=== PATIENT | female | born 2000 | race Caucasian/White ===

== ENCOUNTER → 2021-01-04 08:55 | Outpatient (CLI) | payer OTHER, SELFPAY ==
[2021-01-04 10:03] LABS: HCG Quantitative /Beta subunit 387.7 mIU/mL
== END ==
PROVIDERS: PCP Family Medicine; Referring Provider Family Medicine; Visit Provider Family Medicine
DX: Z32.00 Encounter for pregnancy test, result unknown (principal)
CPT/HCPCS: 36415; 84702

== ENCOUNTER → 2021-01-07 11:33 | Outpatient (CLI) | payer OTHER, SELFPAY ==
[2021-01-07 12:14] LABS: HCG Quantitative /Beta subunit 1449.8 mIU/mL
== END ==
PROVIDERS: PCP Family Medicine; Referring Provider Family Medicine; Visit Provider Family Medicine
DX: Z32.00 Encounter for pregnancy test, result unknown (principal)
CPT/HCPCS: 36415; 84702

== ENCOUNTER → 2021-01-09 10:48 | Outpatient (CLI) | payer OTHER, SELFPAY ==
--- NOTE | 2021-01-09 10:49 | DI.US.S_ITS ---
PROCEDURE: US OB <= 14 WEEKS FETUS INDICATIONS: dating/viability (LMP very unsure) OUTSIDE/PRIOR DATING DATA: Last menstrual period (LMP): Not available LMP-based estimated date of delivery (MICAH): Not available. First dating scan (date and location): 01/09/21. Estimated date of delivery (MICAH) from first dating scan: 09/08/21. TECHNIQUE: Real-time scanning was performed of the fetus and maternal pelvic organs, with image documentation. Endovaginal scanning was also performed to better visualize the fetus and maternal ovaries. COMPARISON: None. FINDINGS: Embryo : Not seen but there is a mean sac diameter of 7 mm which correlates with a gestational age of 5 weeks 3 days. Measurement variability in dating: +/- 4 we. -rump length not able to be measured), +/- 5 days by crown-rump length (up to 8 weeks 6 days gestation), +/- 7 days by crown-rump length (up to 13 weeks 6 days gestation). Yolk sac seen. Maternal organs: Ovaries normal considering gestational status.. IMPRESSION: Early 1st trimester gestation with yolk sac seen within a gestational sac within the endometrial space. A pole is not yet seen, likely due to early gestational age. Follow up in 7-10 days and also correlation with quantitative beta HCG may be warranted Dictated by: David Wallace M.D. on 01/09/2021 at 14:18 Approved by: David Wallace M.D. on 01/09/2021 at 14:22
== END ==
PROVIDERS: PCP Family Medicine; Referring Provider Family Medicine; Visit Provider Family Medicine
DX: Z34.81 Encounter for supervision of other normal pregnancy, first trimester (principal); Z3A.01 Less than 8 weeks gestation of pregnancy
CPT/HCPCS: 76801; 76817

== ENCOUNTER → 2021-01-17 16:37 | Outpatient (CLI) | payer OTHER, SELFPAY ==
[2021-01-17 18:24] LABS: HCG Quantitative /Beta subunit 29936 mIU/mL
== END ==
PROVIDERS: PCP Family Medicine; Referring Provider Family Medicine; Visit Provider Family Medicine
DX: Z34.90 Encounter for supervision of normal pregnancy, unspecified, unspecified trimester (principal)
CPT/HCPCS: 36415; 84702

== ENCOUNTER → 2021-02-13 11:11 | Outpatient (CLI) | payer OTHER, SELFPAY ==
[2021-02-13 11:51] LABS: Appearance Urine UA SL CLOUDY; Bilirubin Urine UA NEGATIVE (NEGATIVE); Color Urine UA YELLOW; Glucose Urine UA NEGATIVE (Negative); Ketones Urine UA NEGATIVE (NEGATIVE); Leukocyte Esterase Urine UA 2+ (NEGATIVE); Nitrite Urine UA NEGATIVE (Negative); Occult Blood Urine UA NEGATIVE (Negative); Protein Urine UA NEGATIVE (Negative); Urobilinogen Urine UA 0.2 E.U./dL (0.2)
[2021-02-13 11:54] LABS: Add Manual Diff / Slide Review NO; Basophils Absolute Auto 0 /uL (0-100); Basophils Percent Auto 0.5 % (0-2); Eosinophils Absolute Auto 0 /uL (0-450); Eosinophils Percent Auto 0.5 % (2-4); Hematocrit 32.4 % (36-46); Hemoglobin 11.4 g/dL (12.0-16.0); Lymphocytes Absolute Auto 1200 /uL (1100-4500); Lymphocytes Percent Auto 16.7 % (25-40); Mean Corpuscular HGB Conc 35.2 % (30-36); Mean Corpuscular Hemoglobin 31.2 PG (26-34); Mean Corpuscular Volume 88.6 fL (80-100); Monocytes Absolute Auto 500 /uL (0-900); Monocytes Percent Auto 7.4 % (3-14); Neutrophils Absolute Auto 5500 /uL (1500-7000); Neutrophils Percent Auto 74.9 % (50-75); Platelet Count 261 X10^3/uL (150-400); Red Blood Cell Count 3.65 X10^6/uL (4.0-5.2); Red Cell Distribution Width 12.8 % (11.6-14.8); White Blood Cell Count 7.4 X10^3/uL (4.5-11.0)
[2021-02-13 11:58] LABS: pH Urine UA 7.5 (4.5-8.0)
[2021-02-13 11:59] LABS: RBC Urine None Seen (0-5/HPF)
[2021-02-13 12:18] LABS: Amorphous Sediment Urine 4+; Bacteria Urine Few (2-10); Squamous Epithelial Cell Urine 10-30 /HPF (0-5/HPF); WBC Urine 1-5/HPF (0-5/HPF)
[2021-02-14 06:39] LABS: RPR Screen Non Reactive (Non Reactive)
[2021-02-14 12:36] LABS: Varicella IgG Antibody 2047 index (Immune >165)
[2021-02-14 15:50] LABS: Hepatitis B Surface Antigen NEGATIVE s/c (NEGATIVE); Rubella Antibody IgG 40.1 IU/mL (>15)
[2021-02-14 16:04] LABS: HIV 1 & 2 Ab/Ag 4th Gen Combo NEGATIVE (NEGATIVE); Hep C Virus Ab w/Reflex Quant NEGATIVE s/c (NEGATIVE)
== END ==
PROVIDERS: PCP Family Medicine; Referring Provider Family Medicine; Visit Provider Family Medicine
DX: Z34.81 Encounter for supervision of other normal pregnancy, first trimester (principal)
CPT/HCPCS: 36415; 80055; 81003; 81015; 86787; 86803; 86850; 86900; 86901; 87086; 87389

== ENCOUNTER → 2021-03-13 11:45 | Outpatient (CLI) | payer OTHER, SELFPAY ==
[2021-03-16 10:19] LABS: AFP, Serum 35.8 ng/mL (.); Estriol, Free 0.61 ng/mL (.); Inhibin A, Dimeric 358.85 pg/mL (.); Inhibin A, MoM 1.99 (.); Maternal Ethnicity Caucasian (.); Maternal Weight 144 lbs (.); Number of Fetuses No (.); OSBR Risk 1 IN 10000 (.); Results Report (.); Test Results *Screen Positive* (.); hCG, MoM 5.05 (.); hCG, Serum 127149 mIU/mL (.)
== END ==
PROVIDERS: PCP Family Medicine; Referring Provider Family Medicine; Visit Provider Family Medicine
DX: Z34.82 Encounter for supervision of other normal pregnancy, second trimester (principal); Z3A.14 14 weeks gestation of pregnancy
CPT/HCPCS: 36415; 82105; 82677; 84702; 86336

== ENCOUNTER → 2021-04-01 10:14 | Outpatient (CLI) | payer OTHER, SELFPAY ==
[2021-04-03 19:10] LABS: AFP, Serum 52.6 ng/mL (.); Calc Gestational Age Ultrasound (.); Estriol, Free 1.36 ng/mL (.); Inhibin A, Dimeric 352.75 pg/mL (.); Inhibin A, MoM 2.23 (.); Maternal Ethnicity Caucasian (.); Maternal Weight 145 lbs (.); Number of Fetuses No (.); OSBR Risk 1 IN 4664 (.); Results Report (.); Test Results *Screen Negative* (.); hCG, MoM 1.89 (.); hCG, Serum 63709 mIU/mL (.)
== END ==
PROVIDERS: PCP Family Medicine; Referring Provider Family Medicine; Visit Provider Family Medicine
DX: Z34.90 Encounter for supervision of normal pregnancy, unspecified, unspecified trimester (principal)
CPT/HCPCS: 36415; 82105; 82677; 84702; 86336

== ENCOUNTER → 2021-04-12 15:39 | Outpatient (CLI) | payer OTHER, SELFPAY ==
--- NOTE | 2021-04-12 15:40 | DI.US.S_ITS ---
PROCEDURE: US OB >= 14 WEEKS FETUS INDICATIONS: ANATOMY SCAN OUTSIDE/PRIOR DATING DATA: Last menstrual period (LMP): Unknown. First dating scan (date and location): 01/09/21. Estimated date of delivery (MICAH) from first dating scan: 09/08/21. TECHNIQUE: Real-time scanning was performed of the fetus, with image documentation and biometric measurements. COMPARISON: [facility], OB <= 14 WEEKS FETUS, 01/09/2021, 10:06. FINDINGS: General: A single living intrauterine gestation is present. Presentation: Vertex. Placenta: Placental position is anterior, without previa. Amniotic fluid index: 15.8 cm, normal range is 5-24 cm. heart rate: 153 beats per minute. Maternal cervical canal: 5.3 cm long. Normal lower limit is 2.5 cm. Is biometrics: Biparietal diameter: 4.5 cm, 19 weeks 4 days Head circumference: 16.4 cm, 19 weeks 1 day Abdominal circumference: 14.4 cm, 19 weeks 5 days Femur length: 2.8 cm, 18 weeks 4 days Estimated gestational age from initial scan: 18 weeks 5 days Composite gestational age from present scan: 19 weeks 2 days Estimated weight and percentile: 279 g, 74th percentile Measurement variability for biometric dating: +/- 7 days from 14 weeks to 15 weeks 6 days gestation, +/- 10 days from 16 weeks to 21 weeks 6 days gestation, +/- 2 weeks from 22 weeks to 27 weeks 6 days gestation, +/- 3 weeks for 28 weeks gestation or later. weight reference: 4500 g or EFW >90/95% is considered macrosomia or large for gestational age. EFW <10% is small for gestational age. EFW 5% or less is considered intra-uterine growth restriction. Anatomic survey: Neuro: Ventricles are non-dilated at less than 10 mm. Cisterna magna is normal at 3-11 mm. Cerebellum is normal in size and morphology. Nuchal skin fold: Normal at less than 6 mm between 14-21 weeks gestational age. Face: Nose and lips, facial profile are normal. Spine: No evidence for spina bifida. Heart: 4-chambered heart is present, with normal ventricular outflow tracts. Diaphragm: Diaphragm is intact. Stomach: Left-sided stomach is present. Kidneys: No hydronephrosis. Normal is less than 5 mm in 2nd trimester, less than 7 mm in 3rd trimester. Cord: 3-vessel cord has orthotopic insertion. Bladder: Normal in size. Extremities: All 4 extremities identified. IMPRESSION: 1. Single living intrauterine demonstrating appropriate interval growth with estimated weight at the 74th percentile. 2. anatomic survey within normal limits. Dictated by: Magdaleno Salazar M.D. on 04/13/2021 at 0:37 Approved by: Magdaleno Salazar M.D. on 04/13/2021 at 0:45
== END ==
PROVIDERS: PCP Family Medicine; Referring Provider Family Medicine; Visit Provider Family Medicine
DX: Z36.89 Encounter for other specified antenatal screening (principal); Z3A.19 19 weeks gestation of pregnancy
CPT/HCPCS: 76811

== ENCOUNTER → 2021-05-23 11:41 | Outpatient (CLI) | payer OTHER, SELFPAY ==
[2021-05-23 12:34] LABS: COVID19 -Nasal RAPID Negative (Negative)
== END ==
PROVIDERS: PCP Family Medicine; Visit Provider Physician Assistant
DX: R51.9 Headache, unspecified (principal); Z20.822 Contact with and (suspected) exposure to COVID-19
CPT/HCPCS: 87635

== ENCOUNTER → 2021-06-11 13:06 | Outpatient (CLI) | payer OTHER, SELFPAY ==
[2021-06-11 14:36] LABS: Hematocrit 30.8 % (36-46); Hemoglobin 10.8 g/dL (12.0-16.0)
[2021-06-11 15:50] LABS: GTT (PREG) 1 Hour PP 50gm Dose 127 mg/dL (76-139)
== END ==
PROVIDERS: PCP Family Medicine; Referring Provider Family Medicine; Visit Provider Family Medicine
DX: Z34.02 Encounter for supervision of normal first pregnancy, second trimester (principal); Z3A.24 24 weeks gestation of pregnancy
CPT/HCPCS: 82950; 85014; 85018

== ENCOUNTER 2021-07-30 11:30 | Outpatient (CLI) | payer OTHER, SELFPAY ==
[2021-07-30 12:22] LABS: Appearance Urine UA CLEAR; Bilirubin Urine UA NEGATIVE (NEGATIVE); Color Urine UA YELLOW; Glucose Urine UA NEGATIVE (Negative); Ketones Urine UA NEGATIVE (NEGATIVE); Leukocyte Esterase Urine UA 2+ (NEGATIVE); Nitrite Urine UA NEGATIVE (Negative); Occult Blood Urine UA NEGATIVE (Negative); Protein Urine UA NEGATIVE (Negative); Specific Gravity Urine UA 1.015 (1.000-1.035); Urobilinogen Urine UA 0.2 E.U./dL (0.2)
[2021-07-30 12:28] LABS: Amorphous Sediment Urine 2+; Bacteria Urine Few (2-10); Culture Indicated Urine Specimen Cultured; RBC Urine None Seen (0-5/HPF); Squamous Epithelial Cell Urine 1-5 /HPF (0-5/HPF); WBC Urine 1-5/HPF (0-5/HPF)
--- NOTE | 2021-07-30 12:28 | PM.OBTRLD ---
Visit Information Visit Information Date of evaluation: 07/30/21 Primary OB Provider: Stanley Aragon On-call OB Provider: Kelly Porter Reason for Evaluation: Yes other Comments/Additional reasons for admission: Patient concerned about low back pain 34 weeks gestation does not feel like it is labor [facility] Medical History (Updated 07/30/21 @ 13:10 by Kelly Porter MD) Depression (~2011) Ovarian cyst (~2013) Premenstrual syndrome Surgical History (Updated 01/11/21 @ 10:36 by Yoselin Blackburn, RN) H/O: knee surgery (~02/2014) [place] teeth extracted (~12/06/20) Family History (Updated 01/11/21 @ 10:45 by Yoselin Blackburn, RN) Mother Hypothyroidism (acquired) Meniere disease History of left salpingo-oophorectomy Depression Father Brain aneurysm Depression Grandmother Breast cancer Celiac disease Grandfather No problems noted. Grandmother No problems noted. Grandmother Alcoholic Diabetes mellitus Stroke Social History marital status: number of children: 1 household members: spouse and family (Lives in [place] on her parents' property; her younger brother also in the home. ) lives independently: Yes caregiver/support person: No housing: other ([facility].) pets and animals: Yes (She has 2 dogs; parents have 2 dogs: safe & aware. 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 ) special edinson needs: No seatbelt use: always do you feel safe at home: Yes Smoking Status: Former smoker (on & off since age 16. Intermittent. Total maybe 8 mos, 5 cigs/day.) Tobacco: How many years used: 1 quit status: has quit before (Quit 04/2019. ) second hand exposure: No alcohol intake: never substance use type: marijuana (Smoking MJ; slowed down with . Uses for anxiety -- needs other options. ) during the past year weight has: remained stable well-balanced diet: daily or most days daily servings fruits/ve-4 caffeine: No Type(s) of exercise: walking and normal ROM and activity (Busy mom to 1 year old; lifting & exertion at her work. ) frequency: daily duration: 30-45 minutes/day Objective Labs Labs: Laboratory Results - last 24 hr 07/30/21 11:47 Urine Color Yellow Urine Appearance Clear Urine pH 7.0 Ur Specific [place] 1.015 Urine Protein Negative Urine Glucose (UA) Negative Urine Ketones Negative Urine Occult Blood Negative Urine Nitrate Negative Urine Bilirubin Negative Urine Urobilinogen 0.2 Ur Leukocyte Esterase 2+ H Evaluation Evaluation Baseline heart rate: 150 Variability: Moderate (11-25) monitor accelerations: Present Monitor Decelerations: Early Category of Tracing: Reactive Status: Category l Diagnosis, Plan/Disposition Final Diagnosis (1) : Status: Acute (2) Low back pain during in third trimester: Status: Acute (3) 34 weeks gestation of : Status: Acute Plan/Disposition Plan: No evidence of labor. Patient left labor and delivery prior to urine results. She will call her primary OB provider to see if she needs to be on antibiotics for UTI. No evidence for pyelonephritis OB Disposition: home
== END 2021-07-30 12:40 | disposition home or self-care (01) ==
LOC: OB 08-13 01:33
PROVIDERS: PCP Family Medicine; Referring Provider Family Medicine; Visit Provider Family Medicine
DX: O26.893 Other specified pregnancy related conditions, third trimester (principal); M54.50 Low back pain, unspecified; Z3A.34 34 weeks gestation of pregnancy
CPT/HCPCS: 59025; 81001; 87077; 87086; G0378; G0379

== ENCOUNTER → 2021-08-15 12:27 | Outpatient (CLI) | payer OTHER, SELFPAY ==
[2021-08-16 09:11] LABS: Strep Grp B PCR POS for Grp B Strep
== END ==
PROVIDERS: PCP Family Medicine; Visit Provider Family Medicine
DX: Z34.83 Encounter for supervision of other normal pregnancy, third trimester (principal); Z3A.36 36 weeks gestation of pregnancy
CPT/HCPCS: 87653

== ENCOUNTER 2021-09-08 02:29 | Inpatient (IN) | payer OTHER, SELFPAY ==
[2021-09-08 03:11] VITALS: BP 122/72
[2021-09-08 03:42] LABS: Add Manual Diff / Slide Review NO; Basophils Absolute Auto 0 /uL (0-100); Basophils Percent Auto 0.6 % (0-2); Eosinophils Absolute Auto 100 /uL (0-450); Eosinophils Percent Auto 0.7 % (2-4); Hematocrit 34.1 % (36-46); Hemoglobin 11.7 g/dL (12.0-16.0); Lymphocytes Absolute Auto 1600 /uL (1100-4500); Lymphocytes Percent Auto 19.4 % (25-40); Mean Corpuscular HGB Conc 34.5 % (30-36); Mean Corpuscular Volume 90.1 fL (80-100); Monocytes Absolute Auto 700 /uL (0-900); Neutrophils Absolute Auto 5700 /uL (1500-7000); Neutrophils Percent Auto 70.3 % (50-75); Platelet Count 231 X10^3/uL (150-400); Red Blood Cell Count 3.78 X10^6/uL (4.0-5.2); Red Cell Distribution Width 13.2 % (11.6-14.8); White Blood Cell Count 8.1 X10^3/uL (4.5-11.0)
[2021-09-08] MEDS: LACTATED RINGERS 1,000 ML 100 ML IV (03:49)
[2021-09-08] MEDS: PENICILLIN G POTASSIUM 5,000,000 UNIT in DEXTROSE 5% IN WATER 250 ML IV (03:49)
[2021-09-08 03:55] LABS: COVID19 -Nasal RAPID Negative (Negative)
[2021-09-08] MEDS: FENT 2MCG/ML BUPIV 0.125% EPI 200 MCG/100 ML PLAST..BAG 12 MCG EPIDURAL ×2 (04:45→10:15)
--- NOTE | 2021-09-08 04:59 | PM.AN.REGBLK ---
Regional Block Pre-procedure Procedure: Continuous Lumbar Epidural for L&D Attending OB provider: Arely Gibbs PMH/ROS narrative: Hx: No personal or family history of anesthesia problems. PSH/Anesthesia history narrative: previous epidural Exam narrative: RRR, CTAB ASA Class: II Labs: Hct 34.1 % (36-46) L 09/08/21 03:30 Plt Count 231 X10^3/uL (150-400) 09/08/21 03:30 Medications: Current Medications Generic Name Dose Route Start Last Admin Trade Name Freq PRN Reason Stop Dose Admin Carboprost Tromethamine 250 mcg 09/08/21 03:09 Carboprost 250 Mcg/Ml Ampul IM Q90M PRN Bleeding Fentanyl 50 mcg 09/08/21 03:09 Fentanyl 100 Mcg/2 Ml Inj IV Q1H PRN Pain, Moderate (4-6) Lactated Ringer's 1,000 mls @ 100 mls/hr 09/08/21 03:15 09/08/21 03:49 Lactated Ringers IV 100 mls/hr CONT SHU Administration Oxytocin/Lactated Ringer's 30 unit in 500 mls @ 200 mls/hr 09/08/21 03:09 Oxytocin Premix IV CONT PRN Bleeding Protocol Tranexamic Acid 1,000 mg/ 100 mls @ 200 mls/hr 09/08/21 03:09 Sodium Chloride IV NOW PRN Bleeding Penicillin G Potassium 3,000,000 unit in 50 mls @ 100 mls/hr 09/08/21 03:15 Penicillin G Potassium IV Q4H SHU Methylergonovine Maleate 0.2 mg 09/08/21 03:09 Methylergonovine 0.2 Mg Tablet PO Q6HR PRN Heavy Bleeding Methylergonovine Maleate 0.2 mg 09/08/21 03:09 Methylergonovine 0.2 Mg/Ml Vial IM NOW PRN Bleeding Misoprostol 800 mcg 09/08/21 03:09 Misoprostol 200 Mcg Tablet NE NOW PRN Bleeding Misoprostol 1,000 mcg 09/08/21 03:09 Misoprostol 200 Mcg Tablet NE NOW PRN Bleeding Misoprostol 400 mcg 09/08/21 03:09 Misoprostol 200 Mcg Tablet SL NOW PRN Bleeding Oxytocin 10 unit 09/08/21 03:09 Oxytocin 10 Unit/Ml Vial IM NOW PRN Bleeding Allergies: Allergies Allergy/AdvReac Type Severity Reaction Status Date / Time No Known Drug Allergies Allergy Verified 08/29/21 11:08 Procedure Insertion date: 09/08/21 Insertion time: 04:44 Prep/Local: betadine x3 (chloroprep) and 1% lidocaine Interspace: L3-4 Patient position: sitting Needle: 18 gauge Hustead (with 27G pencil point needle-through needle for IT dose) Loss of resistance with: saline (with air bubble) BROOKE at (cm): 4 (4.5) Catheter placed at SKIN (cm): 9 Catheter in SPACE (cm): 5 Insertion: Yes CSF, No Blood, Yes Paresthesia with insertion, Yes Paresthesia with injection and No Test dose reaction Initial Medications TEST DOSE time: :44 TEST DOSE: 1.5% lidocaine with epinephrine 1:200k (mL): 5 (3mL initial test dose, 2mL as part of first bolus) BOLUS DOSE time: 04:45 BOLUS DOSE (mL): 2 BOLUS DOSE med: other (10mcg fentanyl intrathecally, 90mcg fentanyl via epidural catheter) Infusion INFUSION: 0.0625% bupivacaine and with fentanyl 2 mcg/mL Initial rate (mL/hr): 12 (with bolus of 5mL Q15min lockout) Subsequent interventions: Catheter placed initially to 10cm at the skin. Mild transient paresthesia on the right with catheter insertion. Repeated again with beginning of the test dose. Catheter pulled back to 9cm, injection then without paresthesia. 1055 - patient with good relief at first, but increasing discomfort as baby descends. Has used boluses. Evenly sided. 5mL bupi 0.25% given. 1105 - good relief, starting to push. Post-procedure Anesthesia time START: 04:28 Anesthesia time END: 11:20 Post-procedure Anesthesia Assessment: No Anesthesia complications
[2021-09-08] MEDS: PENICILLIN G POTASSIUM 3,000,000 UNIT/50 ML FROZ.PIGGY 100 UNIT IV (07:52)
--- NOTE | 2021-09-08 08:00 | PM.OBHP.IH.1 ---
OB HPI Date/Time Date of admission: 09/08/21 Date Patient Seen: 09/08/21 Time Patient Seen: 08:00 History of Present Condition Chief complaint: contractions MICAH Calculator Estimated Delivery Date Method Current WG Current Estimate 09/08/21 Ultrasound #1 40w 0d Other Estimates 08/02/21 LMP (Uncertain) 45w 2d : 2 Para: 1 Narrative: 21YO @ 40wks by 5wk US presented for evaluation of labor at 0230. Moderate contractions every 2-3 minutes. SROM in triage room for a large amount of clear fluid and scant bloody show. Uncomplicated PN care w/ who is out of town. Desires epidural once labor is more active. care: good care, initiated at week # (5) and pounds weight gain (30) Dating criteria OB: based on 1st trimester US only Ultrasounds: normal mid trimester US Obstetrical complications: other (anemia) Medical complications OB: none Preadmission Labs Last OB Lab Results: Blood Type A Positive 09/08/21 03:30 09/08/21 Antibody Screen Negative 09/08/21 03:30 09/08/21 Hematocrit 34.1 % (36-46) L 09/08/21 03:30 09/08/21 Hemoglobin 11.7 g/dL (12.0-16.0) L 09/08/21 03:30 09/08/21 Hepatitis B Surface Antigen Negative s/c (NEGATIVE) 02/13/21 11:19 02/13/21 Hepatitis C Antibody Negative s/c (NEGATIVE) 02/13/21 11:19 02/13/21 Rubella Antibody 40.1 IU/mL (>15) 02/13/21 11:19 02/13/21 Varicella-Zoster IgG Antibody 2047 index (Immune >165) 02/13/21 11:19 02/13/21 Glucose 1 Hour 127 mg/dL (76-139) 06/11/21 14:15 06/11/21 Group B Streptococcus (PCR) Pos for grp b strep H 08/15/21 12:27 08/15/21 Prior (ies) Past Pregnancies Del. Date GA/Weeks Labor Lgth Wt Sex Route Outcome Anesthesia Place Delv Breastfeed Preg Comp Name 12/25/17 40.3 14 3.544 kg Female vaginal live - full term epidural [place], [place] 3 mos. none Minda Levi Delivery Date: 12/25/17 Last Updated by: Yoselin Blackburn R.N. HG x 6mos; Anemia w iron supplement. Membranes stripped 36 hrs before onset of spontaneous labor; AROM just before transition. No issues or complications. Intact perineum. PPD pretty bad - had good family support though. Did not seek counseling. Evaluation Evaluation Baseline heart rate: 135 Variability: Moderate (11-25) monitor accelerations: Present Monitor Decelerations: Absent Contraction Frequency (minutes): 3 Uterine Contraction Intensity: Moderate Status: Category l Dilation (cm): 2 Effacement (%): 75 Dilation: 1-2 cm Effacement: 60-70% station: -3 Position of cervix: posterior Consistency: medium [place] score: 4 Comments: Gross SROM, clear PFSH Medical History Depression (~2011) Ovarian cyst (~2013) Premenstrual syndrome Surgical History H/O: knee surgery (~02/2014) [place] teeth extracted (~12/06/20) Family History Mother Hypothyroidism (acquired) Meniere disease History of left salpingo-oophorectomy Depression Father Brain aneurysm Depression Grandmother Breast cancer Celiac disease Grandfather No problems noted. Grandmother No problems noted. Grandmother Alcoholic Diabetes mellitus Stroke Social History marital status: number of children: 1 household members: spouse and family (Lives in [place] [facility] [place] on her parents' property; her younger brother also in the home. ) lives independently: Yes caregiver/support person: No housing: other ([place].) pets and animals: Yes (She has 2 dogs; parents have 2 dogs: safe & aware. 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 ) special edinson needs: No seatbelt use: always do you feel safe at home: Yes Smoking Status: Former smoker Tobacco: How many years used: 1 quit status: has quit before (Quit 04/2019. ) second hand exposure: No alcohol intake: never substance use type: marijuana (Smoking MJ; slowed down with . Uses for anxiety -- needs other options. ) during the past year weight has: remained stable well-balanced diet: daily or most days daily servings fruits/ve-4 caffeine: No Type(s) of exercise: walking and normal ROM and activity (Busy mom to 1 year old; lifting & exertion at her work. ) frequency: daily duration: 30-45 minutes/day Meds Home Medications and Allergies Home Medications Medication Instructions Recorded Confirmed Type prenat.vits,julienne,[id number] 1 tab PO DAILY 01/11/21 09/08/21 History Allergies Allergy/AdvReac Type Severity Reaction Status Date / Time No Known Drug Allergies Allergy Verified 08/29/21 11:08 Review of Systems Review of Systems ROS: Yes All systems reviewed with the patient and are negative except as otherwise documented OB Exam Resp Effort & Inspection: normal respiratory effort Auscultation: clear to auscultation bilaterally Cardio Rate: regular rate Rhythm: regular rhythm Heart Sounds: S1 normal and S2 normal Presentation: vertex Objective Labs Result Diagrams: 09/08/21 03:30 Labs: Laboratory Results - last 24 hr 09/08/21 09/08/21 09/08/21 03:30 03:30 03:30 WBC 8.1 RBC 3.78 L Hgb 11.7 L Hct 34.1 L MCV 90.1 MCH 31.0 MCHC 34.5 RDW 13.2 Plt Count 231 Neut % (Auto) 70.3 Lymph % (Auto) 19.4 L [place] % (Auto) 9.0 Eos % (Auto) 0.7 L Baso % (Auto) 0.6 Neut # (Auto) 5700 Lymph # (Auto) 1600 [place] # (Auto) 700 Eos # (Auto) 100 Baso # (Auto) 0 SARS-CoV-2 (PCR) Negative Blood Type A Positive Antibody Screen Negative Assessment and Plan Assessment and Plan Assessment and Plan narrative: A: Term primipara Early labor SROM x 5.5hours without sx of infection GBS prophylaxis indicated Cat I FHR P: Admit, routine orders w/ PCN for prophylaxis. Epidural when requested. Reassess in 4-6 hours or sooner, PRN.
--- NOTE | 2021-09-08 11:35 | PM.OBPRVD ---
Labor & Delivery Delivery date: 09/08/21 Intrapartal Events: None Cervical ripening method: none Induction method: none Delivery monitor: external FHT and external uterine Route of delivery: Episiotomy description: None L&D Laceration Description: None Estimated blood loss (mL): 250 Anesthesia Type: Epidural Complications: none Narrative: Labor progressed well without augmentation. GBS was adequately treated. An epidural bolus was given immediately prior to second stage. Primarily CAt I FHR throughout labor w/ Cat I for variable and early decelerations during a short second stage. Patient pushed well with coaching and encouragement in a right lateral position. NSVB of a viable baby boy in AISHA position with no nuchal cord. Patient was assisted to lithotomy position for delivery of shoulder, no additional maneuvers were indicated. [place] was placed on maternal abdomen for drying and stimulation. 30 units of pitocin in 500mL LR was started @ 300mL/HR for AMTSL. After cessation of pulsation, the cord was double clamped by CNM and cut by FOB. Hospital cord blood hold sample was collected. Gentle cord traction and single maternal push led to spontaneous, Schultze delivery, of an apparently inatc placenta, membranes and 3VC. Fundus massaged firm. Small clots expressed. Vaginal and perineum inspected and intact. Fundus remained firm and bleeding minimal. QBL 250mL. Both mother and baby stable and skin to skin as I left the room. [place] Baby 1: gender: Male Presentation: vertex Position: Right Occiput Anterior Placenta delivery description: Spontaneous Cord Vessel Description: 3 Vessels score (1 min): 8 score (5 min): 9 weight: 3925 kg Plan for aftercare: Routine care
[2021-09-08 12:10] VITALS: TEMP 36.8
[2021-09-08] MEDS: KETOROLAC 30 MG/ML VIAL IV (12:10)
[2021-09-08] MEDS: DERMOPLAST SPRAY 20% 60 ML 1 SPRAY TOP (12:12)
[2021-09-08] MEDS: ONDANSETRON 4 MG/2 ML INJ IV (19:19)
[2021-09-08] MEDS: IBUPROFEN 600 MG TABLET PO (20:50)
[2021-09-08] MEDS: ACETAMINOPHEN 325 MG TABLET 650 MG PO (20:51)
[2021-09-09] MEDS: IBUPROFEN 600 MG TABLET PO ×2 (05:46→12:02)
[2021-09-09] MEDS: ACETAMINOPHEN 325 MG TABLET 650 MG PO ×2 (05:46→12:02)
--- NOTE | 2021-09-09 07:39 | P.DS_ITS ---
Discharge Providers Provider Date of admission: 09/08/21 02:29 Discharge Date: 09/09/21 Primary care physician: Rakesh Brown DO Consults: 09/09/21 11:33 Consult to Draw In Hand Routine Comment: Discharge provider: Stanley Aragon MD Summary Hospital Course Date Patient Seen: 09/09/21 Time Patient Seen: 07:39 Diagnoses: G2 para 2 status post term vaginal delivery of viable live male with Apgars 8 and 9 weight 8 lb 10 oz. Routine care Hospital Course: Patient present to the labor and delivery floor in active labor. Patient received 2 doses of antibiotics for GBS positive status before delivery. Patient had reassuring heart tones during labor. Mom delivered viable male infant with Apgars 8 and 9 weight 8 lb 10 oz. Mom had routine care. Postoperative day 1 she was eating her regular diet. Ambulating urination without difficulty no bowel movement yet vital signs have been stable she is afebrile. Good breast-feeding. Blood pressure had 1 reading above 140 the rest of been normal. Mom has no symptoms of headache blurry vision. She has some mild uterine cramping. No significant bleeding the. She is well controlled with use of ibuprofen and Tylenol for pain relief. Has a history of anemia during . Plan. Patient will be discharged home on ibuprofen vitamins and continue with iron supplementation. Time Spent with Patient Time attestation: Total time spent providing and/or coordinating discharge services: Objective Labs Result Diagrams: 09/08/21 03:30 Exam Narrative Exam Narrative: General: Alert no apparent distress. HEENT: Neck is supple without lymphadenopathy pupils equal round and reactive. Cardio: S1-S2 regular rate and rhythm. Respiratory: Lungs clear to auscultation. Abdomen: Uterus firm. Extremities: Normal deep tendon reflexes trace edema. Discharge Plan Discharge Plan Patient Disposition: Home Discharge orders & Medications Prescriptions: New ibuprofen 600 mg Tablet 600 mg PO Q6HR PRN (Reason: Pain, Mild (1-3)) Qty: 30 0RF ferrous gluconate 240 mg (27 mg iron) tablet 240 mg PO DAILY Qty: 30 0RF Continued prenat.vits,julienne,rno-[id number] Tablet 1 tab PO DAILY 0RF Follow up/Referrals: Rakesh Brown DO [Primary Care Provider] - Visit Report/Discharge Packet Visit Report Forms: Patient Portal/API, Stroke Signs & Symptoms Discharge Data Primary Care Provider: Rakesh Brwon
[2021-09-09 10:08] VITALS: BP 121/69; PULSE 61; RESP 18; TEMP 36.8
[2021-09-09 12:02] VITALS: TEMP 36.8
== END 2021-09-09 13:25 | disposition home or self-care (01) | DRG 807 ==
PROVIDERS: Admitting Provider Nurse Practitioner Obstetrics & Gynecology; PCP Family Medicine; Referring Provider Nurse Practitioner Obstetrics & Gynecology; Visit Provider Nurse Practitioner Obstetrics & Gynecology
DX: O99.824 Streptococcus B carrier state complicating childbirth (principal); Z37.0 Single live birth; O76 Abnormality in fetal heart rate and rhythm complicating labor and delivery; Z3A.40 40 weeks gestation of pregnancy; O99.02 Anemia complicating childbirth; D64.9 Anemia, unspecified; Z20.822 Contact with and (suspected) exposure to COVID-19
CPT/HCPCS: 01967; 36415; 59050; 85025; 86850; 86900; 86901; 87635; C9803; G0379; J1885; J2405; J2540; J3010

== ENCOUNTER → 2025-09-25 17:08 | Outpatient (CLI) | payer OTHER, SELFPAY ==
[2025-09-25 18:37] LABS: HCG Quantitative /Beta subunit 62.43 mIU/mL
== END ==
PROVIDERS: PCP Family Medicine; Referring Provider Obstetrics & Gynecology; Visit Provider Obstetrics & Gynecology
DX: O36.80X0 Pregnancy with inconclusive fetal viability, not applicable or unspecified (principal)
CPT/HCPCS: 36415; 84702